=== PATIENT | female | born 1980 ===

== ENCOUNTER 2017-02-26 08:47 | Emergency (ER) | payer OTHER ==
[2017-02-26 08:53] VITALS: BP 124/75; PULSE 83; RESP 16; TEMP 98.1; O2SAT 99
--- NOTE | 2017-02-26 09:15 | C.PDOC ---
History Of Present Illness 36 y/o female presents to ED with complaints of bilateral itchy ears, right greater than left, for several days and maxillary sinus swelling in the morning with nasal congestion. Patient has taken otc swimmer's ear drops with no relief. Patient denies fever, chills, headache or any other complaints at this time. Time Seen by Provider: 02/26/17 09:01 Chief Complaint (Nursing): ENT Problem History Per: Patient History/Exam Limitations: None Onset/Duration Of Symptoms: Days Past Medical History Reviewed: Historical Data, Nursing Documentation, Vital Signs Vital Signs: Last Vital Signs Temp 98.1 F 02/26/17 08:52 Pulse 83 02/26/17 08:52 Resp 16 02/26/17 08:52 BP 124/75 02/26/17 08:52 Pulse Ox 99 02/26/17 11:13 Family History: States: No Known Family Hx - Social History Hx Alcohol Use: No Hx Substance Use: No Review Of Systems Constitutional: Negative for: Fever, Chills Eyes: Negative for: Vision Change ENT: Negative for: Ear Pain, Ear Discharge Skin: Negative for: Rash Neurological: Negative for: Weakness, Headache, Dizziness Physical Exam - Physical Exam Appears: Non-toxic, No Acute Distress Skin: Normal Color, Warm Head: Atraumatic, Normacephalic Ear(s): Bilateral: Normal Oral Mucosa: Moist Respiratory: Normal Breath Sounds, No Rales, No Rhonchi, No Wheezing Gastrointestinal/Abdominal: Soft, No Tenderness, No Guarding, No Rebound Extremity: Normal ROM Neurological/Psych: Oriented x3, Normal Motor, Normal Sensation, Normal Reflexes ED Course And Treatment O2 Sat by Pulse Oximetry: 99 (RA) Pulse Ox Interpretation: Normal Disposition Counseled Patient/Family Regarding: Diagnosis, Need For Followup, Rx Given - Disposition Referrals: [facility] [Outside] [facility] [Outside] Disposition: HOME/ ROUTINE Disposition Time: 09:13 Condition: STABLE Additional Instructions: [facility] la medicacin segn lo prescrito. Seguimiento en la clnica mdica en unos duran. No ponga nada en los odos, puede causar infecciones. Prescriptions: Loratadine/Pseudoephedrine [Claritin-D 24 Hour Tablet] 1 each PO DAILY #14 tab.er.24h Print Language: SAO TOMEAN - Clinical Impression Clinical Impression: Ear itching - PA / [employer] / Resident Statement MD/DO has reviewed & agrees with the documentation as recorded. - Scribe Statement The provider has reviewed the documentation as recorded by the Loliibquinn Morgan All medical record entries made by the Ana Maria were at my direction and personally dictated by me. I have reviewed the chart and agree that the record accurately reflects my personal performance of the history, physical exam, medical decision making, and the department course for this patient. I have also personally directed, reviewed, and agree with the discharge instructions and disposition.
== END 2017-02-26 09:50 | disposition home or self-care (01) ==
LOC: C.ER 08:47
DX: L29.9 Pruritus, unspecified (principal)